=== PATIENT | female | born 1980 | race Caucasian/White ===

== ENCOUNTER 2021-12-10 22:54 | Emergency (ER) | payer MEDICAID, SELFPAY ==
[2021-12-10] MEDS ORDERED: Metoclopramide HCl 10 MG/2 ML VIAL ONE (23:35)
[2021-12-10] MEDS ORDERED: Ketorolac Tromethamine 30 MG/ML VIAL ONE (23:35)
[2021-12-10] MEDS ORDERED: diphenhydrAMINE 50 MG/ML VIAL ONE (23:35)
[2021-12-10] MEDS ORDERED: Sodium Chloride 0.9% 1,000 ML ONE (23:35)
[2021-12-11 00:49] LABS: BHCG - Serum Negative (NEGATIVE); Pregs Control Background? CLEAR/WHITE (CLR/WHITE); Pregs Control Bar Appear? YES (CONTROL BAR)
== END 2021-12-11 00:27 | disposition home or self-care (01) ==
LOC: MADERS 22:54
DX: G43.909 Migraine, unspecified, not intractable, without status migrainosus (principal)
CPT/HCPCS: 84703; 96374; 96375; J1200; J1885; J2765; J7050

== ENCOUNTER 2022-04-12 12:31 | Emergency (ER) | payer SELFPAY ==
[2022-04-12] MEDS ORDERED: Prochlorperazine 10 MG/2 ML VIAL ONE (13:10)
[2022-04-12] MEDS ORDERED: diphenhydrAMINE 50 MG/ML VIAL ONE (13:10)
[2022-04-12] MEDS ORDERED: Lactated Ringer's 1,000 ML ONE (13:10)
[2022-04-12] MEDS ORDERED: Ketorolac Tromethamine 30 MG/ML VIAL ONE (13:10)
== END 2022-04-12 14:05 | disposition home or self-care (01) ==
LOC: MADERS 12:31
DX: G43.909 Migraine, unspecified, not intractable, without status migrainosus (principal); R03.0 Elevated blood-pressure reading, without diagnosis of hypertension; R29.700 NIHSS score 0; I10 Essential (primary) hypertension; F17.210 Nicotine dependence, cigarettes, uncomplicated
CPT/HCPCS: 96361; 96374; 96375; J0780; J1200; J1885; J7120

== ENCOUNTER 2023-02-17 23:19 | Emergency (ER) | payer SELFPAY ==
[2023-02-17] MEDS ORDERED: diphenhydrAMINE 50 MG/ML VIAL ONE (23:56)
[2023-02-17] MEDS ORDERED: Sodium Chloride 0.9% 1,000 ML ONE (23:56)
[2023-02-17] MEDS ORDERED: Ketorolac Tromethamine 30 MG/ML VIAL ONE (23:56)
[2023-02-17] MEDS ORDERED: Metoclopramide HCl 10 MG/2 ML VIAL ONE (23:56)
[2023-02-17] MEDS ORDERED: Metoclopramide HCl 10 MG TAB ONE (23:56)
== END 2023-02-18 00:20 | disposition home or self-care (01) ==
LOC: MADERS 23:19
DX: G43.909 Migraine, unspecified, not intractable, without status migrainosus (principal); I10 Essential (primary) hypertension; F17.210 Nicotine dependence, cigarettes, uncomplicated
CPT/HCPCS: 96374; 96375; J1200; J1885; J2765; J7050